=== PATIENT | male | born 1965 | race Two or more races ===

== ENCOUNTER 2019-07-16 06:30 | Day surgery (SDC) | payer OTHER ==
[~2019-07-16 06:30] MED LIST: OXYCODON-ACETA1 EAC1
== END 2019-07-16 17:15 | disposition home or self-care (01) ==
LOC: CIR.AMB 06:30
DX: S52.532A Colles' fracture of left radius, initial encounter for closed fracture (principal)
CPT/HCPCS: 25609; 25118; 25280; C1776